=== PATIENT | male | born 1980 | race Caucasian/White ===

== ENCOUNTER 2017-02-01 13:26 | Emergency (ER) | payer MEDICAID ==
[~2017-02-01] VITALS: Ht 167.6 cm; Wt 73.0 kg
[2017-02-01 13:52] VITALS: BP 123/85
== END 2017-02-01 17:38 | disposition left against medical advice (07) ==
LOC: ER 14:56
DX: R50.9 Fever, unspecified (principal); Z53.21 Procedure and treatment not carried out due to patient leaving prior to being seen by health care provider